=== PATIENT | male | born 1930 | race Caucasian/White ===

== ENCOUNTER 2020-09-29 12:22 | Inpatient (IN) | payer MEDICARE, OTHER ==
[~2020-09-29] VITALS: Ht 175.3 cm; Wt 77.6 kg
--- NOTE | ~2020-09-29 | EEG ---
[address] [address] EEG STUDY REPORT Name: LUIS ENRIQUE FERRELL Room: [address] IN M.R.#: [id number] Admission: 09/29/20 Attend Phys: Andrea Boogie MD Discharge: Date of : [birth year] Report #: [id number] THIS REPORT FOR: cc: Vik Hagen Christopher DO Khosla, Parveen K. MD ~ DOC #: [id number] Tenzin Portillo MD DATE OF SERVICE: 09/30/2020 This patient had an episode of syncope. EEG is being done to evaluate the possibility of a seizure. EEG was done by placing the electrode by standard 10-20 system of electrode placement. Both referential and sequential montages were used for recording. Background activity in this patient's EEG is about 10 Hz and 30 microvolt. The patient became drowsy and that is associated with bilateral slowing and vertex sharp waves. Throughout the record, no active epileptiform activity was noticed. IMPRESSION: This patient's EEG is within normal limits. Tenzin Portillo MD By: [id number] Portillo MD /nt
--- NOTE | ~2020-09-29 | EMS ---
[place] [id number] EMS Patient Care Report Name: LUIS ENRIQUE FERRELL Room: [address] IN ..#: [id number] Admission: 09/29/20 Attend Phys: Andrea Boogie MD Discharge: Date of : [birth year] Report #: [id number] THIS REPORT FOR: //name// Report Transmitted: 09/29/2020 15:11 EMS Care Summary [facility] Incident [id number] @ 09/29/2020 11:10 Incident Location [address] [place] [address] Patient LUIS ENRIQUE FERRELL Male, 89 Years 1930 Patient Address [address] [place] [address] Patient History Hypertension (HTN),Hyperlipidemia,Myocardial Infarction (OK), Patient Allergies No known allergies, Patient Medications Omeprazole, ASA, Atorvastatin, Vitamin D, Fenofibrate, Carvedilol, Clopidogrel, Chief Complaint Chest pain Disposition Transported Lights/[facility] Dispatch Reason Chest Pain (Non-Traumatic) Transported To [facility] Narrative Dispatch: [facility] was dispatched for a male patient complaining of chest pain. Med 1 copied tones and went en route emergent. Chief Complaint: Med 1 arrived on scene [place] [address] EMS Patient Care Report Name: LUIS ENRIQUE FERRELL Room: [address] IN [facility].#: [id number] Admission: 09/29/20 Attend Phys: Andrea Boogie MD Discharge: Date of : [birth year] Report #: [id number] tripod position. Patient is alert and does appear to be in moderate discomfort. Patient is significantly pale, cool, and diaphoretic. Patient states he "does not feel good." Patient's family states the patient began to experience chest pain and dizziness before calling 911. 12 lead EKG performed showing sinus rhythm with PVC's. Patient was given 324mg ASA oral. History of present illness/SRUTHI: Patient's family states the patient was outside assisting in light yard work when he began to become extremely diaphoretic and dizzy. Family states the patient attempted to sit down, but almost missed the chair due to being dizzy. Patient has a history of OK. Assessment: Airway: Clear, patent, and self maintained. Breathing: Clear, and equal bilaterally. Non labored. Circulation: Skin is pale, cool, and diaphoretic. Strong radial pulses. Disability: A&OX4, GCS 15. Exposures: No life threats were found. See "assessments" tab for further. Reason for ambulance: Patient is experiencing chest pain, requesting EMS treatment and transport to [facility]. Treatments: ALS assessment. 12 lead EKG showing sinus rhythm with PVC's. 324mg ASA oral. 20G IV LAC and right forearm successful. 4mg Zofran IV. 2 liters O2 nasal cannula. Serial EKG's throughout transport. Vitals monitored throughout transport. Summary; With the assistance of EMS, the patient was placed onto the cot, secured in place, and placed into the ambulance for transport. The patient was placed onto the monitor and an IV was established in the LAC. Patient was given 4mg Zofran IV due to feeling nauseous. Med 1 went en route emergent to [facility]. The patient stated that his chest pain "went away" and to "just let him go with his ." Patient continued to present with pale, cool, and diaphoretic skin. Radio report was given with no further questions or orders received. Med 1 arrived at destination and the patient was taken to room 18 in the ED where he was sheet transferred onto the bed. Report was given and signatures and paperwork were received. Med 1 returned back in service. Initial Vitals @11:46P: 71,R: 18,BP: 154/77,SpO2: 98, @11:55P: 70,R: 18,SpO2: 99, @11:44P: 75,R: 20,SpO2: 98, @12:02P: 67,R: 18,BP: 155/82,SpO2: 99, @12:10P: 64,R: 18,SpO2: 99, @11:29P: 75,R: 20,SpO2: 98, @12:16P: 72,R: 18,BP: 156/66,SpO2: 99, [place] [address] EMS Patient Care Report Name: LUIS ENRIQUE FERRELL Room: [address] IN .R.#: [id number] Admission: 09/29/20 Attend Phys: Andrea Boogie MD Discharge: Date of : [birth year] Report #: [id number] @11:30P: 64,R: 20,BP: 160/100,GCS: 15,Glucose: 130,SpO2: 98,Revised Trauma: 12, Assessments @11:22MENTAL:Time Oriented,Person Oriented,Place Oriented,Event Oriented,SKIN:Pale,Cold,Diaphoresis,HEENT:LUNG SOUNDS:General: Vomiting,General: Nausea,ABDOMEN:General: Vomiting,General: Nausea,PELVIS//GI:EXTREMITIES:Capillary Refill: Right Upper: < 2 Sec,PULSE:Radial: 2+ Normal,NEURO:@12:00MENTAL:Person Oriented,Event Oriented,Place Oriented,Time Oriented,SKIN:Diaphoresis,Pale,HEENT:LUNG SOUNDS:General: Nausea,ABDOMEN:General: Nausea,PELVIS//GI:EXTREMITIES:Capillary Refill: Right Upper: < 2 Sec,PULSE:Radial: 2+ Normal,NEURO: Impression Chest Pain / Discomfort Procedures @11:5512-Lead ECGResponse: UnchangedSucceeded@12:1012-Lead ECGResponse: UnchangedSucceeded@12:1612-Lead ECGResponse: UnchangedSucceeded@11:4412-Lead ECGResponse: UnchangedSucceeded@12:0212-Lead ECGResponse: UnchangedSucceeded@11:3012-Lead ECGResponse: UnchangedSucceeded@11:4612-Lead ECGResponse: UnchangedSucceeded@11:2512-Lead ECGResponse: UnchangedSucceeded@11:43Saline Lock 0cc (20 ga) Site: Antecubital-LeftResponse: UnchangedSucceeded@11:26Aspirin - 324 Milligrams (mg) - OralResponse: Improved@11:55Lactated Ringers 500cc (20 ga) Site: Forearm-RightResponse: UnchangedSucceeded@11:44Oxygen FlowRate: 2 Device: Nasal Cannula (NC) Response: UnchangedSucceeded@11:44Zofran - 4 Milligrams (mg) - Intravenous (IV)Response: Improved@11:23ALS AssessmentResponse: UnchangedSucceeded Timeline 11:10,Call Received 11:10,Dispatched 11:12,En Route 11:21,On Scene 11:22,At Patient 11:23,ALS Assessment,Response: UnchangedSucceeded, 11:25,12-Lead ECG,Response: UnchangedSucceeded, 11:26,Aspirin - 324 Milligrams (mg) - Oral,Response: Improved 11:29,BP: / M,PULSE: 75,RR: 20 R,SPO2: 98 Ox,ETCO2: ,BG: ,PAIN: ,GCS: , 11:30,12-Lead ECG,Response: UnchangedSucceeded, 11:30,BP: 160/100 M,PULSE: 64,RR: 20 R,SPO2: 98 Ox,ETCO2: ,B,PAIN: ,GCS: 15, 11:43,Saline Lock 0cc 20 ga Site: Antecubital-Left,Response: UnchangedSucceeded, 11:44,Zofran - 4 Milligrams (mg) - Intravenous (IV),Response: Improved 11:44,Depart Scene 11:44,Oxygen FlowRate: 2 Device: Nasal Cannula (NC) Response: [place] [address] EMS Patient Care Report Name: LUIS ENRIQUE FERRELL Room: [address] IN M.R.#: [id number] Admission: 09/29/20 Attend Phys: Andrea Boogie MD Discharge: Date of : [birth year] Report #: [id number] UnchangedSucceeded, 11:44,12-Lead ECG,Response: UnchangedSucceeded, 11:44,BP: / M,PULSE: 75,RR: 20 R,SPO2: 98 Ox,ETCO2: ,BG: ,PAIN: ,GCS: , 11:46,12-Lead ECG,Response: UnchangedSucceeded, 11:46,BP: 154/77 M,PULSE: 71,RR: 18 R,SPO2: 98 Ox,ETCO2: ,BG: ,PAIN: ,GCS: , 11:55,Lactated Ringers 500cc 20 ga Site: Forearm-Right,Response: UnchangedSucceeded, 11:55,12-Lead ECG,Response: UnchangedSucceeded, 11:55,BP: / M,PULSE: 70,RR: 18 R,SPO2: 99 Ox,ETCO2: ,BG: ,PAIN: ,GCS: , 12:02,12-Lead ECG,Response: UnchangedSucceeded, 12:02,BP: 155/82 M,PULSE: 67,RR: 18 R,SPO2: 99 Ox,ETCO2: ,BG: ,PAIN: ,GCS: , 12:10,12-Lead ECG,Response: UnchangedSucceeded, 12:10,BP: / M,PULSE: 64,RR: 18 R,SPO2: 99 Ox,ETCO2: ,BG: ,PAIN: ,GCS: , 12:16,12-Lead ECG,Response: UnchangedSucceeded, 12:16,BP: 156/66 M,PULSE: 72,RR: 18 R,SPO2: 99 Ox,ETCO2: ,BG: ,PAIN: ,GCS: , 12:19,At Destination 13:17,Call Closed Disclaimer v1.1 Copyright 2020 [employer] This EMS Care Summary contains data elements from the applicable legal record (which may be displayed differently). It is designed to provide pertinent information for the following purposes: continuity of care, clinical quality, and state data reporting. The complete legal record is available to ED staff and administrators of the receiving hospital in [employer]'s Patient Tracker. All data is provided "as is."
--- NOTE | ~2020-09-29 | CON ---
[address] [address] CONSULTATION Name: LUIS ENRIQUE FERRELL Room: [address] ADM IN M.R.#: [id number] Admission: 09/29/20 Attend Phys: Andrea Boogie MD Discharge: Date of : [birth year] Report #: [id number] THIS REPORT FOR: cc: Vik Hagen Christopher DO Khosla,Tenzin Townsend MD ~ DOC #: [id number] Tenzin Portillo MD DATE OF CONSULTATION: 09/30/2020 HISTORY OF PRESENT ILLNESS: This is an 89-year-old male patient who was evaluated by me for an episode of syncope. There is no witness to it. He had some chest pain and he was working outside and there was some shaking noticed during that time. Since then, he had an EEG, which was unremarkable. REVIEW OF SYSTEMS: Indicate that he says he had a stroke. 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 They did surgery. That was done in a [facility], not sure what the symptoms he had. His blood pressure is running low. Many times he says he has Parkinson disease, but he was diagnosed several years ago. He is on medication, but he has not seen any neurologist for a long period of time. He is on a relatively small dose of Sinemet, which is 1 p.o. q.i.d. Presently, he is not complaining of any eye, ENT, cardiac, respiratory, GI, , musculoskeletal, constitutional, dermatological, hematological, and psychiatric, throat, allergic symptom associated with present symptomatology. He apparently had some chest pain when he had this episode, which has resolved. PAST MEDICAL HISTORY: Positive for stroke, but I am not sure what symptom it caused. 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 FAMILY HISTORY: Unremarkable. SOCIAL HISTORY: He does not smoke or drink alcohol. PHYSICAL EXAMINATION: NEUROLOGIC: Indicate he is alert, responsive, oriented, could not name the president. Memory and fund of knowledge is somewhat diminished. Speech looks intact. Cranial nerve examination II-XII looks unremarkable. Strength, sensation, reflexes and tone is symmetrical. There is no cerebellar sign. I could not look at the patient's fundus. He is a tall individual. He does not have any edema. There are no thyroid masses, no carotid bruit. VITAL SIGNS: Blood pressure is 129/57, pulse is 61, temperature is 97.6. CARDIAC: Examinations appear unremarkable. LUNGS: No respiratory [place] [address] CONSULTATION Name: LUIS ENRIQUE FERRELL Room: [address] IN [facility].#: [id number] Admission: 09/29/20 Attend Phys: Andrea Boogie MD Discharge: Date of : [birth year] Report #: [id number] LABORATORY DATA: Indicates a white count of 7 and GFR of 52. He did have a head CT and a carotid Doppler. They were reviewed and that does not show any acute changes. Left carotid is patent. IMPRESSION: The patient's episode is most likely related to cardiac etiology, which may be the low blood pressure and he says he has some chest pain and his heart beats regularly. With a normal CT and EEG, neurological etiology is less likely. I will try to pull out the record from [facility] if we can and I told the patient that we can do an MRI to complete the workup. He wants to go home and if he is asymptomatic and goes home, then we can get it done on Friday or better is if he wants to stay here and get it done on Friday and then go because he is still having nonspecific symptoms, but I believe the emphasis should be on looking for any cardiac cause for his symptoms, that is where the main emphasis should be. Thank you very much for allowing me to share in the management of this patient and please call if there is any question. MD VERONA Power/DANIEL By: 1757 [id number] Portillo MD /rahel
[2020-09-29 12:26] VITALS: BP 165/80
[2020-09-29] MEDS ORDERED: CARVEDILOL3.125 MG PO (12:35)
[2020-09-29] MEDS ORDERED: LIPITOR40 MG PO (12:36)
[2020-09-29] MEDS ORDERED: FENOFIBRATE150 MG PO (12:36)
[2020-09-29] MEDS ORDERED: CARBIDOPA-LEVO1 EAC2 PO (12:36)
[2020-09-29] MEDS ORDERED: OMEPRAZOLE 20 M20 M1 PO (12:36)
[2020-09-29] MEDS ORDERED: PLAVIX 75 MG TA75 MG PO (12:36)
[2020-09-29] MEDS ORDERED: VITAMIN C1000 MG PO (12:37)
[2020-09-29] MEDS ORDERED: ASPIRIN EC81 M1 PO (12:37)
[2020-09-29] MEDS ORDERED: VITAMIN D3125 MC1 PO (12:37)
[2020-09-29] MEDS ORDERED: PRESERVISION A1 EACH PO (12:38)
[2020-09-29 12:51] LABS: ABSOLUTE EOSINOPHILS 0.3 thou/uL (0.0-0.7); ABSOLUTE LYMPHOCYTES 1.8 thou/uL (0.8-5.3); ABSOLUTE MONOCYTES 0.7 thou/uL (0.0-1.2); ABSOLUTE NEUTROPHILS 5.1 thou/uL (1.6-8.1); BASOPHILS 0.4 %; EOSINOPHILS 3.7 %; HEMATOCRIT 41.9 % (42.0-52.0); HEMOGLOBIN 14.1 gm/dL (14.0-18.0); LYMPHOCYTES 22.6 %; MCH 31.7 pg (26.0-34.0); MCHC 33.7 g/dL (28.0-37.0); MPV 7.7 fl. (7.2-11.1); NUCLEATED RBCS 0 /100WBC; PLATELET COUNT* 170 thou/uL (150-400); POLYS 64.3 %; RBC 4.46 mil/uL (4.50-6.00); RDW-CV 13.3 % (10.5-14.5); WBC 7.9 thou/uL (4.0-11.0)
[2020-09-29 13:13] LABS: CALCIUM 9.4 mg/dL (8.5-10.1); CREATININE 1.5 mg/dL (0.6-1.3); POTASSIUM 4.6 mmol/L (3.5-5.1)
[2020-09-29 13:24] LABS: ALBUMIN 3.6 g/dL (3.4-5.0); MAGNESIUM 1.8 mg/dL (1.8-2.4); TOTAL BILIRUBIN 1.2 mg/dL (<0.1-1.0)
[2020-09-29 15:40] VITALS: BP 147/79
--- NOTE | 2020-09-29 15:54 | EKG ---
[place] [address] ELECTROCARDIOGRAM REPORT Name: LUIS ENRIQUE FERRELL Room: [place] [address] ADM IN [facility].#: [id number] Admission: 09/29/20 Attend Phys: Andrea Boogie, Discharge: Date of : [birth year] Date of Service: 09/29/20 1227 Report #: [id number] THIS REPORT FOR: //name// [facility] ED Test Date: 2020-09-29 Test Time: 12:27:05 Pat Name: LUIS ENRIQUE FERRELL Department: Room: [facility] Gender: M Mica Paster: CHAVA : 1930 Requested By: Arthur Saavedra Order Number: [id number] MD: Bautista Schneider Measurements Intervals [place] Rate: 68 P: -65 IL: 161 QRS: 45 QRSD: 94 T: 26 QT: 395 QTc: 421 Interpretive Statements Sinus rhythm Ventricular premature complex Left ventricular hypertrophy Borderline ST elevation, lateral leads early repolarization No previous ECG available for comparison Electronically Signed On 09-29-2020 15:53:54 CDT by Bautista Schneider [email or web address] <ELECTRONICALLY SIGNED> By: Bautista Schneider MD, [facility] 09/29/20 1553 1227 1227 Bautista Schneider MD, [facility] /EPI
[2020-09-29 16:17] VITALS: BP 175/92
--- NOTE | 2020-09-29 17:12 | 2DMMODE ---
[place] [address] 2 D/M-MODE ECHOCARDIOGRAM Name: LUIS ENRIQUE FERRELL Room: [address] IN .R.#: [id number] Admission: 09/29/20 Attend Phys: Andrea Boogie, Discharge: Date of : [birth year] Date of Service: 09/29/20 1712 Report #: [id number] THIS REPORT FOR: cc: Vik Hagen,Vik Shepherd,Bautista [place] MD [facility] ~ APPROVED REPORT Study performed: 09/29/2020 16:27:08 EXAM: Comprehensive 2D, Doppler, and color-flow Echocardiogram Patient Location: In-Patient Room #: [facility] Status: routine BSA: 1.88 HR: 57 bpm Rhythm: NSR Other Information Study Quality: Good Indications Syncope 2D Dimensions IVSd: 11.83 (7-11mm) LVOT Diam: 21.27 (18-24mm) LVDd: 46.82 mm PWd: 10.87 (7-11mm) Ascending Ao: 35.05 (22-36mm) LVDs: 23.61 (25-40mm) Aortic Root: 39.78 mm Volumes Left Atrial Volume (Systole) LA ESV Index: 27.90 mL/m2 Aortic Valve AoV Peak Sen.: 0.95 m/s AO Peak Gr.: 3.64 mmHg LVOT Max P.65 mmHg AO Mean Gr.: 2.06 mmHg LVOT Mean P.34 mmHg LVOT Max V: 0.81 m/s AO V2 VTI: 20.70 cm LVOT Mean V: 0.53 m/s BLANCA (VTI): 2.49 cm2 LVOT V1 VTI: 14.52 [place] [address] 2 D/M-MODE ECHOCARDIOGRAM Name: LUIS ENRIQUE FERRELL Room: [address] IN .R.#: [id number] Admission: 09/29/20 Attend Phys: Andrea Boogie, Discharge: Date of : [birth year] Date of Service: 09/29/20 1712 Report #: [id number] Mitral Valve E/A Ratio: 1.21 MV Decel. Time: 215.48 ms MV E Max Sen.: 0.77 m/s MV PHT: 62.49 ms MVA (PHT): 3.52 cm2 TDI E/Lateral E': 8.56 E/Medial E': 11.00 Medial E' Sen.: 0.07 m/s Lateral E' Sen.: 0.09 m/s Pulmonary Valve PV Peak Sen.: 0.59 m/s PV Peak Gr.: 1.38 mmHg Tricuspid Valve RAP Estimate: 5.00 mmHg TR Peak Gr.: 35.57 mmHg RVSP: 40.00 mmHg PA Pressure: 40.00 mmHg Left Ventricle The left ventricle is normal size. There is normal LV segmental wall motion. There is normal left ventricular wall thickness. Left ventricular systolic function is normal. The left ventricular ejection fraction is within the normal range. LVEF is >70%. The left ventricular diastolic function is normal. Right Ventricle The right ventricle is normal size. The right ventricular systolic function is normal. Atria The left atrium size is normal. The right atrium size is normal. Aortic Valve Mild aortic valve sclerosis. No aortic regurgitation is present. There is no aortic valvular stenosis. Mitral Valve The mitral valve is normal in structure. Trace mitral regurgitation. No evidence of mitral valve stenosis. Tricuspid Valve The tricuspid valve is normal in structure. Trace tricuspid regurgitation. estimated pa pressure 45 [place] [address] 2 D/M-MODE ECHOCARDIOGRAM Name: LUIS ENRIQUE FERRELL Room: [address]#: [id number] Admission: 09/29/20 Attend Phys: Andrea Boogie, Discharge: Date of : [birth year] Date of Service: 09/29/20 1712 Report #: [id number] Pulmonic Valve Pulmonic valve is not well visualized. There is no pulmonic valvular regurgitation. Great Vessels The aortic root is normal in size. The inferior vena cava is not well visualized. Pericardium There is no pericardial effusion. <Conclusion> Left ventricular systolic function is normal. The left ventricular ejection fraction is within the normal range. Mild aortic valve sclerosis. Trace tricuspid regurgitation. estimated pa pressure 45 mm Hg <ELECTRONICALLY SIGNED> By: Bautista Schneider MD, [facility] 09/29/201711 11 11 Bautista Schneider MD, FACC /INF
[2020-09-29 20:19] VITALS: BP 129/60
[2020-09-30] VITALS: BP 111/56
[2020-09-30 04:00] VITALS: BP 126/64
[2020-09-30 04:43] LABS: CREATININE 1.3 mg/dL (0.6-1.3); POTASSIUM 3.9 mmol/L (3.5-5.1)
[2020-09-30 04:52] LABS: ABSOLUTE EOSINOPHILS 0.2 thou/uL (0.0-0.7); ABSOLUTE LYMPHOCYTES 2.1 thou/uL (0.8-5.3); ABSOLUTE MONOCYTES 0.6 thou/uL (0.0-1.2); BASOPHILS 0.4 %; EOSINOPHILS 3.3 %; HEMATOCRIT 40.2 % (42.0-52.0); HEMOGLOBIN 13.5 gm/dL (14.0-18.0); MCH 31.1 pg (26.0-34.0); MCHC 33.5 g/dL (28.0-37.0); MONOCYTES 8.9 %; MPV 8.4 fl. (7.2-11.1); NUCLEATED RBCS 0 /100WBC; PLATELET COUNT* 170 thou/uL (150-400); POLYS 57.4 %; RBC 4.33 mil/uL (4.50-6.00); RDW-CV 13.4 % (10.5-14.5)
[2020-09-30 04:54] LABS: CHOLESTEROL 147 mg/dL (<200); HDL CHOLESTEROL 28 mg/dL (>40); LDL CHOLESTEROL 95 mg/dL (<100); SERUM ASSESSMENT Clear; TC:HDL 5.3 Ratio (Not establshd); TRIGLYCERIDE 124 mg/dL (<150); VLDL 25 mg/dL (<40)
[2020-09-30 08:00] VITALS: BP 128/60
--- NOTE | 2020-09-30 09:50 | CON ---
[address] [address] CONSULTATION Name: LUIS ENRIQUE FERRELL Room: [address] ADM IN M.R.#: [id number] Admission: 09/29/20 Attend Phys: Andrea Boogie MD Discharge: Date of : [birth year] Report #: [id number] THIS REPORT FOR: cc: Vik Hagen Christopher DO Blick, David R. MD [facility] ~ DOC #: [id number] Bautista Schneider MD [facility] DATE OF CONSULTATION: 09/29/2020 HISTORY OF PRESENT ILLNESS: The patient is an 89-year-old single white male who I was asked to see in the hospital today after he had a brief loss of consciousness. The history is obtained from the family who was available as well as the patient. There are no old records. The patient has no previous history of heart disease. According to the family member, 6 months ago he felt confused and weak. He was taken to the Emergency Room in [place]. He was felt to have a stroke. He was given TPA. He was then transferred to [facility]. He was felt to have had a stroke. He subsequently underwent left carotid endarterectomy. 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 Today, he was outside, worked on a ladder. According to family members, he then sat down in a chair, felt nauseated and diaphoretic. He then became unresponsive and started shaking. Paramedics were called. He was brought here to [place] by ambulance. He denied chest pain or palpitations. He apparently did vomit. He has had no recent diarrhea or bleeding. PAST MEDICAL HISTORY: He has had previous prostate surgery, hemorrhoidectomy, cataract extraction, hypertension, hyperlipidemia, and Parkinson's. MEDICATIONS: Carvedilol, atorvastatin, omeprazole, Plavix, fenofibrate, aspirin. He is on Parkinson drug that he takes 4 times a day. ALLERGIES: He has no known drug allergies. FAMILY HISTORY: His father had heart disease. SOCIAL HISTORY: He is , lives in [place], [place]. Quit smoking years ago. No alcohol abuse. REVIEW OF SYSTEMS: He has had no history of asthma, kidney disease, cancer, chronic skin condition, and psychiatric illness. PHYSICAL EXAMINATION: GENERAL: Revealed an elderly male, lying in bed, he appeared in no distress. VITAL SIGNS: His blood pressure is 140/80, pulse 70. He is afebrile. HEENT: He was anicteric. Conjunctivae pink. [place] [address] CONSULTATION Name: LUIS ENRIQUE FERRELL Room: [address] IN M.R.#: [id number] Admission: 09/29/20 Attend Phys: Andrea Boogie MD Discharge: Date of : [birth year] Report #: [id number] NECK: Veins not appear distended. No carotid bruits. Neck is supple. CHEST: Clear to auscultation. CARDIOVASCULAR: Regular rate and rhythm. No murmurs. ABDOMEN: Soft. EXTREMITIES: Had no edema. Dorsalis pedis pulse could not be palpated. SKIN: Cool and dry. NEUROLOGIC: Nonfocal. LABORATORY DATA: His ECG showed a sinus rhythm, occasional PVC, left ventricular hypertrophy. His workup in the Emergency Room today, he had a portable chest x-ray that showed normal heart size, clear lung gaytan. CT scan of the head was performed without contrast that showed no acute abnormalities. Chronic changes. His lab work in the Emergency Room, sodium 139, BUN 30, creatinine 1.5. His liver function studies were normal. Troponin 0.06. BNP 629. White blood cell count 7.9, hematocrit 41.9. His COVID antigen stat test was negative. IMPRESSION AND RECOMMENDATIONS: 1. Brief loss of consciousness. Suspect seizure. The patient is being seen by Neurology. 2. Previous stroke. Previous carotid endarterectomy. The patient is on Plavix and aspirin. 3. Hypertension. The patient is on a beta amira. 4. Hyperlipidemia. The patient is on Lipitor for high cholesterol and fenofibrate for high triglycerides. 5. Parkinson's disease. Bautista Schneider MD [facility] YOU/ELISE <ELECTRONICALLY SIGNED> By: Bautista Schneider MD, [facility] 09/30/20 0950 1526 [id number] Schneider MD, [facility] /nt
[2020-09-30 12:00] VITALS: BP 104/48; BP 120/60; BP 129/57
[2020-09-30 19:26] VITALS: BP 149/61
[2020-09-30 20:34] VITALS: BP 127/67
[2020-10-01] VITALS (9 sets, daily range): BP systolic 93–183; BP diastolic 47–87
[2020-10-01 03:05] LABS: GLYCOHEMOGLOBIN (HGB A1C) 5.8 % (4.8-5.6)
[2020-10-01 06:04] LABS: HEMATOCRIT 39.3 % (42.0-52.0); HEMOGLOBIN 13.3 gm/dL (14.0-18.0); MCH 31.3 pg (26.0-34.0); MCHC 33.9 g/dL (28.0-37.0); MCV 92.4 fL (80.0-100.0); MPV 8.1 fl. (7.2-11.1); RBC 4.26 mil/uL (4.50-6.00); RDW-CV 13.4 % (10.5-14.5); WBC 6.5 thou/uL (4.0-11.0)
[2020-10-01 06:10] LABS: CALCIUM 8.8 mg/dL (8.5-10.1); CREATININE 1.2 mg/dL (0.6-1.3); POTASSIUM 3.9 mmol/L (3.5-5.1)
[2020-10-02 05:05] VITALS: BP 142/79
[2020-10-02 08:00] VITALS: BP 146/85; BP 147/64
[2020-10-02 12:30] VITALS: BP 126/67
== END 2020-10-02 15:30 | disposition home or self-care (01) | DRG 683 ==
LOC: M.ERS 12:22 → M.TBA-ER 13:41 → M.2W 13:41
PROVIDERS: Emergency Medicine Emergency Medical Services; Internal Medicine; ADMIT Internal Medicine; ATTEND Internal Medicine
DX: N17.9 Acute kidney failure, unspecified (principal); G45.0 Vertebro-basilar artery syndrome; K21.9 Gastro-esophageal reflux disease without esophagitis; R56.9 Unspecified convulsions; G20 Parkinson's disease; I10 Essential (primary) hypertension; E78.5 Hyperlipidemia, unspecified; I95.9 Hypotension, unspecified; E78.00 Pure hypercholesterolemia, unspecified; M48.00 Spinal stenosis, site unspecified; Z20.822 Contact with and (suspected) exposure to COVID-19; Z79.01 Long term (current) use of anticoagulants; Z79.82 Long term (current) use of aspirin; Z79.899 Other long term (current) drug therapy; Z87.891 Personal history of nicotine dependence; Z86.73 Personal history of transient ischemic attack (TIA), and cerebral infarction without residual deficits